=== PATIENT | male | born 1975 | race Caucasian/White ===

== ENCOUNTER 2021-10-31 16:04 | Emergency (ER) | payer OTHER ==
[~2021-10-31] VITALS: Ht 180.3 cm; Wt 90.7 kg
[~2021-10-31 16:04] MED LIST: CYCLOBENZAPRINE10 MG PO; FLEXERIL10 MG PO; HYDROCODON-ACE1 EAC8 PO; IBUPROFEN400 MG PO; NORCO 5-325 TA1 EACH PO; PROBIOTIC1 EAC1 PO; PROVENTIL HFA6.7 GM INH
--- OUTSIDE RECORDS SUMMARY | 2021-10-31 16:06 | XMS ---
PreManage Notification: SCARLET [facility]ENEGAS Security Watch Inspector Events No recent Security Events currently on file CRITERIA MET - PDMP CARE PROVIDERS [facility] Current PHONE: Unknown Amanda has no Care Guidelines for this patient. EMasoud VISIT COUNT (12 MO.) 1 LAM Berry TOTAL 1 NOTE: Visits indicate total known visits. ED/UCC VISIT TRACKING (12 MO.) 10/31/2021 16:05 LAM Emmanuel OR TYPE: Emergency COMPLAINT: - VOMITING INPATIENT VISIT TRACKING (12 MO.) No inpatient visits to display in this time frame [email or web address]
[2021-10-31] MEDS ORDERED: ONDANSETRON ODT4 MG PO (18:09)
[2021-10-31] MEDS ORDERED: DICYCLOMINE HCL20 MG PO (18:09)
== END 2021-10-31 19:30 | disposition home or self-care (01) ==
LOC: ED 16:04
DX: F15.10 Other stimulant abuse, uncomplicated (principal); K52.9 Noninfective gastroenteritis and colitis, unspecified; F17.200 Nicotine dependence, unspecified, uncomplicated; Z20.822 Contact with and (suspected) exposure to COVID-19
CPT/HCPCS: 36415; 80053; 81001; 83690; 83735; 85025; 96361; 96374; 96375; 96376; 99284-25; C9803; J1885; J2405; J7030; U0003